=== PATIENT | female | born 1995 ===

== ENCOUNTER 2019-06-10 08:49 | Outpatient (CLI) | payer OTHER | END 2019-06-10 08:51 | disposition home or self-care (01) | LOC: RAD 08:49 | DX: R76.11 Nonspecific reaction to tuberculin skin test without active tuberculosis (principal) ==

== ENCOUNTER 2020-04-25 13:58 | Outpatient (CLI) | payer OTHER | END 2020-04-25 14:12 | disposition home or self-care (01) | LOC: RAD 13:58 | PROVIDERS: ATTEND Dentist Oral and Maxillofacial Surgery | DX: R07.89 Other chest pain (principal) ==

== ENCOUNTER 2022-11-20 13:42 | Outpatient (CLI) | payer OTHER | END 2022-11-20 13:54 | disposition home or self-care (01) | LOC: SONOGRAMA 13:42 | PROVIDERS: ATTEND Obstetrics & Gynecology | DX: Z12.31 Encounter for screening mammogram for malignant neoplasm of breast (principal); N60.11 Diffuse cystic mastopathy of right breast; N60.12 Diffuse cystic mastopathy of left breast ==